=== PATIENT | male | born 2000 | race Caucasian/White ===

== ENCOUNTER 2018-09-15 03:17 | Emergency (ER) | payer SELFPAY ==
[~2018-09-15] VITALS: Ht 167.6 cm; Wt 79.4 kg
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
[2018-09-15] MEDS ORDERED: TRAM50TA2 PO (04:29)
[2018-09-15 04:38] VITALS: BP 145/58
== END 2018-09-15 04:35 | disposition home or self-care (01) ==
LOC: ER FS 03:19
DX: T23.292A Burn of second degree of multiple sites of left wrist and hand, initial encounter (principal); T23.232A Burn of second degree of multiple left fingers (nail), not including thumb, initial encounter; T31.0 Burns involving less than 10% of body surface; X12.XXXA Contact with other hot fluids, initial encounter
CPT/HCPCS: 99283

== ENCOUNTER 2019-03-15 03:56 | Emergency (ER) | payer OTHER ==
[~2019-03-15] VITALS: Ht 165.1 cm; Wt 78.2 kg
[~2019-03-15 03:56] MED LIST: TRM50T PO
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
[2019-03-15 05:54] VITALS: BP 110/58
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
== END 2019-03-15 05:54 | disposition home or self-care (01) ==
LOC: EDUNIT# 03:56 → ER FS 04:12
DX: S39.012A Strain of muscle, fascia and tendon of lower back, initial encounter (principal); T14.8XXA Other injury of unspecified body region, initial encounter; R40.2142 Coma scale, eyes open, spontaneous, at arrival to emergency department; R40.2252 Coma scale, best verbal response, oriented, at arrival to emergency department; R40.2362 Coma scale, best motor response, obeys commands, at arrival to emergency department; V47.5XXA Car driver injured in collision with fixed or stationary object in traffic accident, initial encounter
CPT/HCPCS: 71045; 72100; 73080; 73140

== ENCOUNTER 2022-09-30 07:00 | Outpatient (CLI) | payer OTHER ==
[~2022-09-30] VITALS: Ht 167.6 cm; Wt 79.7 kg
[2022-09-30] MEDS ORDERED: DULO60CA59 PO (09:39)
== END 2022-09-30 10:03 ==
LOC: PREOP 07:00
PROVIDERS: ATTEND Surgery
DX: Z01.818 Encounter for other preprocedural examination (principal)

== ENCOUNTER 2022-10-07 10:43 | Day surgery (SDC) | payer OTHER ==
[2022-10-07] VITALS (11 sets, daily range): BP systolic 110–137; BP diastolic 48–89
[~2022-10-07] VITALS: Ht 167.6 cm; Wt 79.7 kg
[~2022-10-07 10:43] MED LIST changes: +DULO60CA59 PO
[2022-10-07] MEDS ORDERED: LACTATED RINGERS 1,000 ML IV PRN (11:00)
[2022-10-07] MEDS ORDERED: ceFAZolin INJECTION 2,000 MG in NS (IVPB) 50 ML 50 ML IV ONE (11:00)
[2022-10-07] MEDS ORDERED: LIDOCAINE/EPI 1%-1:100,000 (XYLOCAINE) 20ML ONE (12:40)
--- NOTE | 2022-10-07 13:46 | Progress Note-Pre Operative ---
Pre-Operative Progress Note Date of Available H&P: Sep 24, 2022 Date H&P Reviewed: Oct 07, 2022 Time H&P Reviewed: 13:44 History & Physical: H&P Reviewed, Patient Examed Pre-Operative Diagnosis: pilonidal cyst ESTHER HONG DO Oct 07, 2022 13:46
[2022-10-07] MEDS ORDERED: ONDANSETRON 4 MG/2 ML (SDV) Z0FRAN ONE (13:58)
[2022-10-07] MEDS ORDERED: fentaNYL INJ 100 MCG/2 ML AMP ONE (13:58)
[2022-10-07] MEDS ORDERED: MIDAZOLAM 2 MG/2 ML (VERSED) VIAL ONE (13:58)
[2022-10-07] MEDS ORDERED: GLYCOPYRROLATE 0.2 MG/ML (ROBINUL) 2 ML VIAL ONE (13:58)
[2022-10-07] MEDS ORDERED: proPOfol 200 MG/20 ML (DIPRIVAN) VIAL IV ONE (13:58)
[2022-10-07] MEDS ORDERED: LIDOCAINE PF 2% 5 ML (XYLOCAINE) VIAL ONE (13:58)
[2022-10-07] MEDS ORDERED: dexAMETHasone INJ 10 MG/ML 1 ML VIAL ONE (13:58)
[2022-10-07] MEDS ORDERED: LIDOCAINE/EPI 1%-1:100,000 (XYLOCAINE) 20ML INJ ONE (14:24)
[2022-10-07] MEDS ORDERED: ROCURONIUM 50 MG/5 ML (ZEMURON) VIAL IV ONE (14:28)
[2022-10-07] MEDS ORDERED: NEOSTIGMINE (BLOXIVERZ ) 1 MG/1ML 10 ML VIAL ONE (14:28)
--- NOTE | 2022-10-07 14:37 | Progress Note-Post Operative ---
Post-Operative Progess Note Surgeon (s)/Ripening Room Hand (s) Surgeon ESTHER HONG DO Ripening Room Hand: none Pre-Operative Diagnosis pilonidal cyst Post-Operative Diagnosis same Procedure & Operative Findings Date of Procedure 10/07/22 Procedure Performed/Findings Excision of pilonidal cyst with packing INDICATIONS: The patient is a 22 male , who has a pilonidal cyst that has been draining and he wants to get this removed. PROCEDURE NOTE: After informed consent was obtained, the patient was brought to the operating room. He was intubated and placed on table in a prone position. He was sterilely prepped and draped in a normal fashion. The lidocaine was used to infiltrate the skin around this pilonidal cyst. There were 3 openings in the gluteal crease. I elected to do an elliptical incision around these openings and going down the midline pilonidal cyst with a #15 blade. Incision was carried down through the skin into subcutaneous tissue, deepened down to subcutaneous tissue with Bovie electrocautery, taking this down all the way to the sacrum, removing all of the abscess cavity and the pilonidal cyst. This was then passed off the table. Hemostasis was obtained using Bovie electrocautery. Copiously irrigated with normal saline and then packed with a half inch iodoform packing. The area was cleaned and dried. A pressure dressing was placed. The patient was transferred to recovery room in stable condition. Sponge, instrument and needle count correct at the end of the case. Anesthesia Type GET Estimated Blood Loss Estimated blood loss (mL): less than 5ml Specimens/Packing Specimens Removed pilonidal cyst, skin and contents ESTHER HONG DO Oct 07, 2022 14:37
[2022-10-07] MEDS ORDERED: ACHD5005 PO (14:38)
--- NOTE | 2022-10-07 14:40 | Discharge Inst-Surgical ---
Discharge Inst-Surgical Depart Medication/Instructions New, Converted or Re-Newed RX: Transmitted to Pharmacy Patient Instructions Follow up Appt: Make appointment for 1 week. [phone] Instructions: No lifting greater than 20 pounds. No strenuous activity. May shower in 24 hours, no tub bath or soaking. Use incentive spirometer at home as directed. No Smoking Skin/Wound Care: May remove bandages in am. You need to pack the wound daily. Symptoms to Report: Appetite Changes, Extremity Discoloration, Numbness/Tingling, Swelling Increased, Bleeding Excessive, Eyesight Changes, Pain Increased, Urine Color Change, Constipation(Persistent), Fever over 101 degree F, Pain/Pressure in chest, Urinating Difficulty, Cough Up/Vomit Blood, Heart Beat Irreg/Pounding, Pain/Pressure in jaw, Cramps in feet or legs, Lightheadedness, Pain/Pressure in shoulder, Diarrhea(Persistent), Memory Changes Suddenly, Questions/Concerns, Weight gain consecutive days, Dizziness/Fainting, Nausea/Vomiting, Shortness of Breath, Weight gain over 2 pounds If questions or concerns contact your physician Or seek help at emergency department. Activity Activity as Tolerated: Yes Activity Instructions: Avoid Stress to Incision Driving Instructions: No Driving/Refer to Dr. Lazcano Discharge Diet: No Restrictions Diet After 24 Hours: Clear Liquid if Nauseous If Any Problems/Questions/Issu: Contact Your Physician, Go to Emergency Room Skin/Wound Care Infection Signs and Symptoms: Increased Redness, Foul Odor of Wound, Increased Drainage, Skin Itchy or Has a Rash, Increased Swelling, Temperature Above 101 F Bathing Instructions: ESTHER Ross DO Oct 07, 2022 14:40
[2022-10-07] MEDS ORDERED: SUGAMMADEX 500 MG/5 ML VIAL (BRIDION) IV ONE (14:41)
--- NOTE | 2022-10-07 14:56 | Anesthesia-General Post-Op ---
General Patient Condition Mental Status/LOC: Same as Preop Cardiovascular: Satisfactory Nausea/Vomiting: Absent Respiratory: Satisfactory Pain: Controlled Complications: Absent Post Op Complications Complications None Follow Up Care/Instructions Patient Instructions None needed. Anesthesia/Patient Condition Patient Condition Patient is awake in PACU and doing well, no complaints, stable vital signs, no apparent adverse anesthesia problems. No complications reported per nursing. ISREAL BENITEZ DO Oct 07, 2022 14:56
[2022-10-07] MEDS ORDERED: ONDANSETRON 4 MG/2 ML (SDV) Z0FRAN IVP PRN (15:00)
[2022-10-07] MEDS ORDERED: HYDROmorphone 2 MG/ML VIAL (DILAUDID) IV ONE (15:00)
[2022-10-07] MEDS ORDERED: morphine INJ 10 MG/ML 1ML (SYR OR VIAL) IVP ONE (15:00)
[2022-10-07] MEDS ORDERED: SEVOFLURANE (ULTANE) 15 ML INHAL SOLN ONE (15:02)
[2022-10-07] MEDS ORDERED: morphine INJ 10 MG/ML 1ML (SYR OR VIAL) ONE (15:19)
== END 2022-10-07 16:45 | disposition home or self-care (01) ==
LOC: SDC 10:43
PROVIDERS: ATTEND Surgery
DX: L05.01 Pilonidal cyst with abscess (principal); F17.290 Nicotine dependence, other tobacco product, uncomplicated; Z28.310 Unvaccinated for COVID-19
CPT/HCPCS: 87081; 88304